=== PATIENT | female | born 1970 | race American Indian/Alaskan Native ===

== ENCOUNTER 2021-06-29 20:18 | Emergency (ER) | payer OTHER ==
[2021-06-29 20:26] VITALS: BP 127/76
[2021-06-29] MEDS ORDERED: ACETAMINOPHEN 500 MG TAB PO ONE (20:58)
[2021-06-29] MEDS ORDERED: METOCLOPRAMIDE 10 MG TAB PO ONE (20:58)
[2021-06-29] MEDS ORDERED: diphenhydrAMINE 25 MG CAP PO ONE (20:58)
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
--- NOTE | 2021-06-30 09:33 | Electrocardiograph Report ---
[facility] Test Date: 2021-06-29 Test Time: 21:13:41 Pat Name: KAMILAH LANDIS Department: Room: Gender: F [employer]eration Service Technician: : 1970 Requested By: CHANDRIKA SANCHEZ Order Number: [id number] Reading MD: Miguel Sidhu Measurements Intervals [place] Rate: 82 P: 48 OK: 146 QRS: -13 QRSD: 108 T: 49 QT: 373 QTc: 437 Interpretive Statements Sinus rhythm Nonspecific repol abnormality, diffuse leads No previous ECG available for comparison Electronically Signed On 06-30-2021 9:32:52 EDT by Miguel Sidhu
== END 2021-06-29 22:10 | disposition home or self-care (01) ==
LOC: ED 20:18
DX: S16.1XXA Strain of muscle, fascia and tendon at neck level, initial encounter (principal); R07.89 Other chest pain; R51.9 Headache, unspecified; Z79.899 Other long term (current) drug therapy; V87.7XXA Person injured in collision between other specified motor vehicles (traffic), initial encounter; Y93.89 Activity, other specified; Y92.488 Other paved roadways as the place of occurrence of the external cause; Y99.8 Other external cause status
CPT/HCPCS: 71046; 72040; 93005; 99283